=== PATIENT | female | born 1970 | race Caucasian/White ===

== ENCOUNTER → 2018-11-28 | Outpatient (CLI) | payer OTHER ==
--- NOTE | 2018-11-28 17:29 | REPMRS ---
Patient History The patient states she has not had a clinical breast exam in over a year. Patient is postmenopausal. No known family history of cancer. Digital Mammo Screening Bilat: November 28, 2018 - Exam #: [id number] Bilateral CC and MLO view(s) were taken. Technologist: Zohra Juarez, Technologist Prior study comparison: February 04, 2014, bilateral digital woman screen mammo, performed at [facility]. January 20, 2010, bilateral mammogram, performed at [facility]. FINDINGS: There are scattered fibroglandular densities. There is a moderate amount of residual fibroglandular tissue which is fairly symmetric. There is no interval development of dominant mass, architectural distortion, or clustered microcalcification typical of malignancy. There has been no change in the appearance of the mammogram from the prior studies. Assessment: BI-RADS/ACR category 1 mammogram. Negative Mammogram. Recommendation Routine screening mammogram of both breasts in 1 year (for women over age 40). This patient's Lifetime Breast Cancer RIsk is estimated at 5.9 %. This mammogram was interpreted with the aid of an FDA-approved computer-aided dectection system. Electronically Signed By: Gil Marrero MD 11/28/18 [id number]
== END ==
LOC: M RAD 16:36
PROVIDERS: ATTEND Family Medicine
DX: Z12.31 Encounter for screening mammogram for malignant neoplasm of breast (principal)

== ENCOUNTER 2018-12-17 11:28 | Emergency (ER) | payer OTHER ==
[~2018-12-17] VITALS: Ht 160 cm; Wt 88.6 kg
[~2018-12-17 11:28] MED LIST: ADDE20CA3 PO; ALIG4CAP PO; ATOR1TAB21 PO; MULTCAP PO; OMEP40CA2 PO
[2018-12-17] MEDS ORDERED: LIDOCAINE 2% MDV 20 ML VIAL SC ONE (12:45)
[2018-12-17] MEDS ORDERED: ADACEL/BOOSTRIX VACCINE (DIPHTH/PERTUSS/ACELL/TETANUS)0.5ML SYR (90715) IM ONE (12:45)
[2018-12-17 13:22] VITALS: BP 161/84
== END 2018-12-17 13:23 | disposition home or self-care (01) ==
LOC: M ED 11:28
DX: S61.012A Laceration without foreign body of left thumb without damage to nail, initial encounter (principal); W26.0XXA Contact with knife, initial encounter; Y92.018 Other place in single-family (private) house as the place of occurrence of the external cause; F90.9 Attention-deficit hyperactivity disorder, unspecified type; E78.9 Disorder of lipoprotein metabolism, unspecified; Z79.899 Other long term (current) drug therapy

== ENCOUNTER 2018-12-20 10:58 | Day surgery (SDC) | payer OTHER ==
[~2018-12-20] VITALS: Ht 160 cm; Wt 88.5 kg
[~2018-12-20 10:58] MED LIST changes: +NS 1,000 ML IV ONE
[2018-12-20] MEDS ORDERED: PROPOFOL 200 MG/20 ML VIAL As Ordered ONE (13:50)
[2018-12-20] MEDS ORDERED: LIDOCAINE 2% INJ 100 MG/5 ML SDV (FOR ANES.) As Ordered ONE (13:50)
--- NOTE | 2018-12-20 13:55 | ROOR ---
Patient Name: Neema Montelongo Procedure Date: 12/20/2018 1:39 PM Date of : 1970 Age: 48 Room: [facility] Gender: Female Note Status: Finalized Procedure: Total Colonoscopy to Cecum Indications: Screening for colorectal malignant neoplasm Providers: Agustin Bach MD Referring MD: JOSE JUAN MANZANO MD Requesting Provider: Medicines: Monitored Anesthesia Care Complications: No immediate complications. Procedure: Pre-Anesthesia Assessment: - The heart rate, respiratory rate, oxygen saturations, blood pressure, adequacy of pulmonary ventilation, and response to care were monitored throughout the procedure. The Colonoscope was introduced through the anus and advanced to the cecum, identified by appendiceal orifice and ileocecal valve. The colonoscopy was performed without difficulty. The patient tolerated the procedure well. The quality of the bowel preparation was excellent. Findings: The perianal and digital rectal examinations were normal. Non-bleeding internal hemorrhoids were found during retroflexion. The hemorrhoids were small and Grade I (internal hemorrhoids that do not prolapse). No other significant abnormalities were identified in a careful examination of the remainder of the colon. The exam was otherwise without abnormality on direct and retroflexion views. Impression: - Non-bleeding internal hemorrhoids. - The examination was otherwise normal on direct and retroflexion views. - No specimens collected. - The exam was otherwise normal to the cecum. Recommendation: - Patient has a contact number available for emergencies. The signs and symptoms of potential delayed complications were discussed with the patient. Return to normal activities tomorrow. Written discharge instructions were provided to the patient. - High fiber diet. - Discharge patient to home. - Continue present medications. - Repeat colonoscopy in 10 years for screening purposes. - Return to referring physician. - The findings and recommendations were discussed with the patient's family. Agustin Bach MD Agustin Bach MD 12/20/2018 1:55:18 PM This report has been signed electronically. Number of Addenda: 0 Note Initiated On: 12/20/2018 1:39 PM Estimated Blood Loss: Estimated blood loss: none.
[2018-12-20 14:15] VITALS: BP 170/88
== END 2018-12-20 14:23 | disposition home or self-care (01) ==
LOC: M OPP 10:58
PROVIDERS: ATTEND Internal Medicine Gastroenterology
DX: Z12.11 Encounter for screening for malignant neoplasm of colon (principal); K64.0 First degree hemorrhoids; R12 Heartburn; Z79.899 Other long term (current) drug therapy